=== PATIENT | female | born 1965 | race Caucasian/White ===

== ENCOUNTER → 2017-02-15 | Outpatient (CLI) | payer BC, OTHER | LOC: BMCIMAGING 08:57 | DX: Z12.31 Encounter for screening mammogram for malignant neoplasm of breast (principal) | CPT/HCPCS: G0202 ==

== ENCOUNTER → 2017-06-17 | Outpatient (CLI) | payer BC | LOC: CIMAGING 13:09 | PROVIDERS: ATTEND Physician Assistant | CPT/HCPCS: 73200-PO ==

== ENCOUNTER 2018-09-20 16:26 | Emergency (ER) | payer BC ==
[2018-09-20] MEDS ORDERED: PROMETHAZINE HCL 25 MG/ML INJ IVP ONE (16:50)
[2018-09-20] MEDS ORDERED: NS 1,000 ML IV ONE ×2 (16:50→17:48)
[2018-09-20] MEDS ORDERED: PANTOPRAZOLE SODIUM 40 MG VIAL IVP ONE (17:01)
[2018-09-20 17:14] LABS: PLATELET COUNT 248 10^3/uL (150-400)
--- NOTE | 2018-09-20 17:17 | EDPHY ---
General - History Smoking Status: Former smoker Time Seen by Provider: 09/20/18 16:59 Narrative: CHIEF COMPLAINT: Nausea, vomiting, diarrhea, weakness HISTORY OF PRESENT ILLNESS: Patient presents private vehicle with her spouse and children with complaints of nausea, vomiting, diarrhea and weakness. Symptoms started abruptly around 1: 00 p.m.. She reports vomiting started 1st, and quickly after this diarrhea. Too numerous to count episodes of each. No blood or bile described. She has no pain in her abdomen but does have some cramping. She has so sees it's the symptoms with a sudden onset of body aches, subjective fever and chills. No sweating. No chest pain or shortness of breath. No cough. No neck pain or stiffness. No rash. No known sick contacts. No recent travel outside the country. No other associated complaints or modifying factors REVIEW OF SYSTEMS: 10 systems were reviewed and negative with the exception of the elements mentioned in the history of present illness. PCP: Dr. Valentino SPECIALISTS: Oral surgeon PAST MEDICAL HISTORY: PE, SVT, adam menopausal PAST SURGICAL HISTORY: Two weeks postop oral surgery SOCIAL HISTORY: Never smoker. Lives independently with her spouse and children FAMILY HISTORY: Noncontributory EXAMINATION: Vitals: Triage VS reviewed General Appearance: Alert, no distress. Nontoxic Head: normocephalic, atraumatic Eyes: Pupils equal and round, no conjunctival pallor or injection ENT, Mouth: Mucous membranes slightly dry. No trismus. Airway widely patent without erythema or edema. No exudate. Neck: Normal inspection, supple, non-tender Respiratory: Lungs are clear to auscultation Cardiovascular: Regular rate and rhythm Gastrointestinal: Abdomen is soft and nontender Back: non-tender, no bony abnormalities Neurological: A&O, nonfocal, normal gait Skin: Warm and dry, no rash Extremities: Nontender, no pedal edema Psychiatric: Mood and affect normal DIFFERENTIAL DIAGNOSES: Including but not limited to influenza, viral syndrome, gastroenteritis, enteritis, colitis, gastritis MDM: 4:50 p.m. Acute nausea, vomiting, diarrhea with body aches and history exam suggests gastroenteritis versus influenza. She has completely normal vital signs and does have a viral syndrome appearance. She has no abnormal findings on the examination. She is conversing appropriately in nontoxic. IV will be established and we will administer IV fluid. Laboratory studies and flu test pending. She is in no acute distress. 5:50 p.m. CBC reveals leukocytosis with a left shift. Chemistry is within normal limits with exception of mild hyperbilirubinemia at 1.9. Influenza test is negative. I have re-evaluated the patient. She is feeling better and we will try ice chips and water intake. 6:45 p.m. Patient re-evaluated. She is tolerating ice chips and water. States that her nausea is much better. We will attempt ambulate her. 7:00 p.m. Patient ambulated with assistance and reports that she is feeling very lightheaded and dizzy when doing so. I have ordered orthostatic vital signs and I will re-evaluate. 7:20 p.m. Orthostatic vital signs are within normal limits. I have re-evaluated the patient. She continues to improve. I did offer admission to the hospital for further IV fluid and medication administration but she has declined. She states that she would like to try and go home. I do feel it is reasonable given that she has a likely gastroenteritis versus mild food-borne illness. Her vitals continue to be well within normal limits. We discussed discharge home with symptomatic medications. We discussed strict ED precautions and a 24 hr recheck if no improvement at that time. The patient and her spouse at bedside are comfortable this plan and she would like to go home. Discharged stable condition. SUPERVISION: This patient was independently evaluated without direct involvement of or examination by the attending physician. CONSULTATION: None (Ho Jaimes) Medical Decision Making: I did not see this patient while she was in the emergency department. However her care was discussed with the PA while the patient was in the department. I agree with treatment plan and management (Reza Shane) - Objective Vital Signs: Initial Vital Signs Temperature (C) 36.4 C 09/20/18 16:27 Heart Rate 98 09/20/18 16:27 Respiratory Rate 16 09/20/18 16:27 Blood Pressure 122/72 H 09/20/18 16:27 O2 Sat (%) 97 09/20/18 16:27 O2 Delivery Mode Room Air Allergies/Adverse Reactions: Sulfa (Sulfonamide Antibiotics) Allergy (Verified 04/11/15 17:10) Home Medications: Medication Instructions Recorded Famotidine [Pepcid 20 MG (*)] 20 mg PO BID #30 tab 09/20/18 Ondansetron Odt [Zofran Odt 4 mg 4 mg PO Q6 PRN #12 tab 09/20/18 (*)] Promethazine HCl [Phenergan 25mg 25 mg PO Q8 PRN #12 tab 09/20/18 (*)] Venlafaxine HCl 09/20/18 Laboratory Results: Laboratory Results 09/20/18 17:05 09/20/18 17:05 Medications Given: Discontinued Medications Sodium Chloride (Ns) 1,000 mls @ 0 mls/hr IV EDNOW ONE; Wide Open PRN Reason: Protocol Stop: 09/20/18 16:51 Last Admin: 09/20/18 17:14 Dose: 1,000 mls Sodium Chloride (Ns) 1,000 mls @ 0 mls/hr IV EDNOW ONE; Wide Open PRN Reason: Protocol Stop: 09/20/18 17:49 Last Admin: 09/20/18 18:33 Dose: 1,000 mls Ondansetron HCl (Zofran) 4 mg IVP EDNOW ONE Stop: 09/20/18 18:07 Last Admin: 09/20/18 18:18 Dose: 4 mg Pantoprazole Sodium (Protonix) 40 mg IVP EDNOW ONE Stop: 09/20/18 17:02 Last Admin: 09/20/18 17:14 Dose: 40 mg Promethazine HCl (Phenergan) 12.5 mg IVP ONCE ONE Stop: 09/20/18 16:51 Last Admin: 09/20/18 17:14 Dose: 12.5 mg Departure - Departure Disposition: Home, Routine, Self-Care Clinical Impression: Nausea vomiting and diarrhea Condition: Good Instructions: Gastroenteritis (ED), Acute Nausea and Vomiting (ED) Additional Instructions: 1. Nausea medications as prescribed as needed 2. [id number] Maalox as needed, as directed on the bottle 3. ED precautions for any abdominal pain, fever, intolerance of intake by mouth 4. Contact primary care physician as discussed for outpatient care Referrals: Maria E Valentino NP [place] [place] - As per Instructions Physician,Emergency Dept, [Medical Doctor] - As per Instructions Prescriptions: Famotidine [Pepcid 20 MG (*)] 20 mg PO BID #30 tab Ondansetron Odt [Zofran Odt 4 mg (*)] 4 mg PO Q6 PRN #12 tab PRN Reason: Nausea/Vomiting, Use 1st Promethazine HCl [Phenergan 25mg (*)] 25 mg PO Q8 PRN #12 tab PRN Reason: Nausea/Vomiting, Use 1st
[2018-09-20] MEDS ORDERED: ONDANSETRON 4 MG/2 ML VIAL IVP ONE (18:06)
[2018-09-20 20:00] VITALS: BP 97/62
== END 2018-09-20 19:57 | disposition home or self-care (01) ==
DX: R11.2 Nausea with vomiting, unspecified (principal); R19.7 Diarrhea, unspecified; E86.9 Volume depletion, unspecified
CPT/HCPCS: 96374; J2405; J2550